=== PATIENT | male | born 1970 | race American Indian/Alaskan Native ===

== ENCOUNTER 2018-10-12 10:22 | Emergency (ER) | payer SELFPAY ==
[2018-10-12] MEDS ORDERED: ASPIRIN PO ONE (10:29)
[2018-10-12 11:10] LABS: Basophils % (Auto) 0.6 % (0.0-1.8); Eosinophils % (Auto) 0.9 % (0.0-4.3); Hematocrit 43.1 % (35.5-45.6); Hemoglobin 14.4 gm/dl (11.8-15.2); Lymphocytes # (Auto) 2.2 K/mm3 (1.2-5.4); Lymphocytes % (Auto) 51.4 % (13.4-35.0); Mean Corpuscular HGB Conc 33 % (32-34); Mean Corpuscular Hemoglobin 28 pg (28-32); Mean Corpuscular Volume 85 fl (84-94); Monocytes # (Auto) 0.4 K/mm3 (0.0-0.8); Monocytes % (Auto) 10.2 % (0.0-7.3); Platelet Count 199 K/mm3 (140-440); Red Blood Count 5.11 M/mm3 (3.65-5.03); Red Cell Distribution Width 14.4 % (13.2-15.2)
[2018-10-12 11:25] LABS: BUN/Creatinine Ratio 12; Blood Urea Nitrogen 11 mg/dL (9-20); Calcium 9.5 mg/dL (8.4-10.2); Hemolysis Index 7
[2018-10-12] MEDS ORDERED: FIORICET PO ONE (13:22)
--- NOTE | 2018-10-12 13:33 | Emergency Department Report ---
- General Chief Complaint: Chest Pain Stated Complaint: CHEST PAIN/SOB Time Seen by Provider: 10/12/18 13:07 Source: patient Mode of arrival: Ambulatory Limitations: No Limitations - History of Present Illness Initial Comments: 48-year-old male with URI symptoms 1 week. 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 Patient states symptoms were worse this morning so he came to the ER. Patient states prior to ED arrival and he took some DayQuil which seemed to relieve his headache. MD Complaint: cough, nasal congestion -: week(s) (1) Severity: moderate Quality: aching Consistency: intermittent Improves With: OTC cold medicine Worsens With: other (cough) Associated Symptoms: headache, nasal congestion, cough, chest pain (with cough). denies: fever, chills, shortness of breath, nausea, vomiting, diarrhea - Related Data Previous Rx's Medication Instructions Recorded Last Taken Type Benzonatate [Tessalon Perles] 100 mg PO Q8HR PRN #20 capsule 10/12/18 Unknown Rx Butalb/Acetamin/Caff 50-325-40 1 tab PO Q6HR PRN #10 tab 10/12/18 Unknown Rx [Fioricet] Fluticasone [Flonase] 1 spray NS QDAY #1 bottle 10/12/18 Unknown Rx Loratadine [Claritin] 10 mg PO DAILY #30 tablet 10/12/18 Unknown Rx Allergies Allergy/AdvReac Type Severity Reaction Status Date / Time No Known Allergies Allergy Verified 10/12/18 10:57 ED Review of Systems ROS: Stated complaint: CHEST PAIN/SOB Other details as noted in HPI Comment: All other systems reviewed and negative Constitutional: denies: chills, fever ENT: denies: throat pain Respiratory: cough. denies: shortness of breath Cardiovascular: chest pain Gastrointestinal: denies: abdominal pain, nausea, vomiting Neurological: headache. denies: weakness, numbness, paresthesias ED Past Medical Hx - Past Medical History Previous Medical History?: No - Surgical History Past Surgical History?: No - Social History Smoking Status: Current Every Day Smoker Substance Use Type: Marijuana - Medications Home Medications: Home Medications Medication Instructions Recorded Confirmed Last Taken Type Benzonatate [Tessalon Perles] 100 mg PO Q8HR PRN #20 capsule 10/12/18 Unknown Rx Butalb/Acetamin/Caff 50-325-40 1 tab PO Q6HR PRN #10 tab 10/12/18 Unknown Rx [Fioricet] Fluticasone [Flonase] 1 spray NS QDAY #1 bottle 10/12/18 Unknown Rx Loratadine [Claritin] 10 mg PO DAILY #30 tablet 10/12/18 Unknown Rx ED Physical Exam - General Limitations: No Limitations General appearance: alert, in no apparent distress - Head Head exam: Present: atraumatic, normocephalic - Eye Eye exam: Present: normal appearance - ENT ENT exam: Present: mucous membranes moist - Neck Neck exam: Present: normal inspection. Absent: meningismus - Respiratory Respiratory exam: Present: normal lung sounds bilaterally. Absent: respiratory distress - Cardiovascular Cardiovascular Exam: Present: regular rate, normal rhythm - GI/Abdominal GI/Abdominal exam: Present: soft. Absent: distended - Extremities Exam Extremities exam: Present: normal inspection - Neurological Exam Neurological exam: Present: alert, oriented X3, CN II-XII intact. Absent: motor sensory deficit - Psychiatric Psychiatric exam: Present: normal affect, normal mood - Skin Skin exam: Present: warm, dry, intact, normal color ED Course Vital Signs 10/12/18 10:42 Temperature 97.8 F Pulse Rate 82 Respiratory 16 Rate Blood Pressure 157/95 [Right] O2 Sat by Pulse 99 Oximetry ED Medical Decision Making - Lab Data Result diagrams: 10/12/18 10:51 10/12/18 10:51 - EKG Data -: EKG Interpreted by [facility] EKG shows normal: sinus rhythm, axis, intervals, QRS complexes Rate: normal - EKG Data Interpretation: no acute changes - Radiology Data Radiology results: report reviewed, image reviewed - Medical Decision Making 48-year-old male with URI symptoms 1 week. Reports headache, chest pain with c ough, congestion. Chest pain does not sound cardiac in nature, describes it as located across his entire chest, exacerbated with cough. He says she unremarkable, troponin negative 2. Patient reported improvement of headache with DayQuil, no neuro deficits on exam. Chest x-ray negative. Will discharge at this time a prescriptions for Tessalon Perles, Claritin, Flonase. Return precautions given. Outpatient follow-up advised. - Differential Diagnosis URI, pneumonia, seasonal allergy, allergic rhinitis Critical care attestation.: If time is entered above; I have spent that time in minutes in the direct care of this critically ill patient, excluding procedure time. ED Disposition Clinical Impression: URI (upper respiratory infection) Disposition: TO HOME OR SELFCARE Is pt being admited?: No Condition: Stable Instructions: Upper Respiratory Infection (ED) Prescriptions: Benzonatate [Tessalon Perles] 100 mg PO Q8HR PRN #20 capsule PRN Reason: Cough Butalb/Acetamin/Caff 50-325-40 [Fioricet] 1 tab PO Q6HR PRN #10 tab PRN Reason: Headache Fluticasone [Flonase] 1 spray NS QDAY #1 bottle Loratadine [Claritin] 10 mg PO DAILY #30 tablet Referrals: [facility] [Provider Group] - 3-5 Days DEEPIKA JOE MD [Staff Physician] - 3-5 Days Time of Disposition: 14:08
--- NOTE | 2018-10-12 13:49 | XRay Report ---
ROUTINE CHEST, TWO VIEWS: HISTORY: Cough. The trachea, heart, mediastinal contour, lung hernadez and bony thorax are unremarkable. IMPRESSION: Unremarkable chest x-ray.
[2018-10-12 15:30] VITALS: BP 154/91
== END 2018-10-12 14:32 | disposition home or self-care (01) ==
LOC: ED 10:22
DX: J06.9 Acute upper respiratory infection, unspecified (principal); F17.200 Nicotine dependence, unspecified, uncomplicated
CPT/HCPCS: 36415; 71046; 80048; 84484; 85025; 93005; 93010; 99284

== ENCOUNTER 2019-03-09 08:19 | Emergency (ER) | payer BC ==
--- NOTE | 2019-03-09 09:11 | Emergency Department Report ---
ED Back Pain/Injury HPI - General Chief Complaint: Back Pain/Injury Stated Complaint: BACK PAIN/VOMITING Time Seen by Provider: 03/09/19 08:53 Source: patient Limitations: No Limitations - History of Present Illness Initial Comments: This is a 48-year-old male with no prior medical history presents to ED complaining of right-sided lower back pain 1 day. Patient states that he was at work yesterday lifting some heavy furniture when he strained his back. Patient states his years of history of chronic back pain. Patient states he was so that he might need an MRI at some point. Signed he denies any fall, injuries, he denies any dysuria, fever, chills, nausea or vomiting Patient also complaining that he has a dental infection causing pain and toothache at this time. MD Complaint: back pain Similar Symptoms Previously: Yes Place: work Severity scale (0 -10): 5 Quality: aching Worsens With: movement Context: while lifting Associated Symptoms: denies other symptoms. denies: confusion, weakness, numbness, constipation, nausea/vomiting - Related Data Previous Rx's Medication Instructions Recorded Last Taken Type Benzonatate [Tessalon Perles] 100 mg PO Q8HR PRN #20 capsule 10/12/18 Unknown Rx Butalb/Acetamin/Caff 50-325-40 1 tab PO Q6HR PRN #10 tab 10/12/18 Unknown Rx [Fioricet] Fluticasone [Flonase] 1 spray NS QDAY #1 bottle 10/12/18 Unknown Rx Loratadine [Claritin] 10 mg PO DAILY #30 tablet 10/12/18 Unknown Rx Clindamycin [Clindamycin CAP] 300 mg PO Q8H #20 cap 03/09/19 Unknown Rx Cyclobenzaprine [Flexeril] 10 mg PO QHS PRN #20 tablet 03/09/19 Unknown Rx Naproxen [Naprosyn] 500 mg PO BID #30 tablet 03/09/19 Unknown Rx Allergies Allergy/AdvReac Type Severity Reaction Status Date / Time No Known Allergies Allergy Verified 10/12/18 10:57 ED Review of Systems ROS: Stated complaint: BACK PAIN/VOMITING Other details as noted in HPI Comment: All other systems reviewed and negative ED Back Pain Physical Exam - Exam General: Vital signs noted. No distress. Alert and acting appropriately. Back/Abdomen: No Abdominal Tenderness, No Perithoracic Tenderness, No Perilumbar Tenderness, No Sacroiliac Tenderness, No Flank Tenderness, No Straight Leg Raise Pain Neuro: Yes Normal Sensation, Yes Normal DTR's, Yes Normal Gait, No Motor Weakness ED Medical Decision Making - Medical Decision Making 39-year-old female presents to ED with lower back strain ED course: Patient received Toradol and Flexeril in ED. Vital signs are normal patient is in no acute distress Discussed with patient follow-up with primary care physician. Discussed the patient and take medications as prescribed. Patient has no neurological deficit. Patient is alert and oriented 3 and understands all instructions given. Discussed drowsiness effect of Flexeril makes her drowsy and not to operate machinery while taking flexeril Critical care attestation.: If time is entered above; I have spent that time in minutes in the direct care of this critically ill patient, excluding procedure time. ED Disposition Clinical Impression: Strain of muscle, fascia and tendon of lower back, initial encounter Disposition: TO HOME OR SELFCARE Is pt being admited?: No Does the pt Need Aspirin: No Condition: Stable Instructions: Muscle Strain (ED) Additional Instructions: Make sure to follow up with the primary care physician as discussed. Take all your medications as you've been prescribed. If you have any worsening symptoms or develop new symptoms please return to ED immediately. Prescriptions: Cyclobenzaprine [Flexeril] 10 mg PO QHS PRN #20 tablet PRN Reason: Muscle Spasm Clindamycin [Clindamycin CAP] 300 mg PO Q8H #20 cap Naproxen [Naprosyn] 500 mg PO BID #30 tablet Referrals: [facility] [Provider Group] - 3-5 Days ELLA ALEXANDER MD [Staff Physician] - 3-5 Days MOON GARCIA MD [Primary Care Provider] - 3-5 Days [facility] [Outside] - 3-5 Days [facility] [Outside] - 3-5 Days Forms: Work/School Release Form(ED) Time of Disposition: 09:21
[2019-03-09] MEDS ORDERED: TORADOL IM ONE (10:03)
[2019-03-09] MEDS ORDERED: DELTASONE PO ONE (10:04)
[2019-03-09 10:13] VITALS: BP 141/110
== END 2019-03-09 10:26 | disposition home or self-care (01) ==
LOC: ED 08:19
DX: S39.012A Strain of muscle, fascia and tendon of lower back, initial encounter (principal); X50.0XXA Overexertion from strenuous movement or load, initial encounter; Y93.89 Activity, other specified; Y92.89 Other specified places as the place of occurrence of the external cause; Y99.0 Civilian activity done for income or pay
CPT/HCPCS: 96372; 99282; J1885; J7512